=== PATIENT | female | born 1980 | race African-American/Black ===

== ENCOUNTER → 2016-08-03 | Outpatient (CLI) | payer BC ==
[~2016-08-03] MED LIST: MTR600X PO; OXYC-57 PO; PRENTAB26 PO
--- NOTE | 2016-08-03 13:35 | MAMMOGRAPHY REPORT ---
BILATERAL DIGITAL DIAGNOSTIC MAMMOGRAM TOMOSYNTHESIS WITH CAD AND TARGETED RIGHT ULTRASOUND: 08/03/19 17 CLINICAL HISTORY: 36-year-old woman with anterior right breast pain. She is still occasionally nurs ing a young child and noticed pain after returning to after a brief period of cessation. No palpable lumps or bloody nipple discharge. No family history of breast cancer. TECHNIQUE: Bilateral breast tomosynthesis in addition to standard 2D mammography was performed. Curr ent study was also evaluated with a Computer Aided Detection (CAD) system. COMPARISON: No prior exams were available for comparison. BREAST COMPOSITION: There are scattered areas of fibroglandular density in both breasts. FINDINGS: No suspicious mass, architectural distortion or cluster of microcalcifications is seen. Real-time high-resolution ultrasound was performed in the area of pain pointed out by the patient in cluding the retroareolar right breast, 2:00, 3:00, 4:00, 5:00, 6:00 and 7:00 anterior axes. Normal fibroglandular tissue is seen without a discrete solid or cystic mass. There is no evidence of an i ntraductal mass or other suspicious abnormality. IMPRESSION: ACR BI-RADS CATEGORY 2: BENIGN, TARGETED ULTRASOUND ACR BI-RADS CATEGORY 2: BENIGN There is no mammographic or targeted sonographic evidence of malignancy. No suspicious mammographic or sonographic abnormality to explain in the anterior right breast pain. Therefore, clinical follo w-up is recommended. Would also recommend annual screening mammography beginning at age 40. The pa tient has been verbally notified of the results. Approximately 10% of breast cancers are not detected with mammography. A negative mammographic repor t should not delay biopsy if a clinically suggestive mass is present. Justyna Jon M.D. ay/:08/03/2016 10:46:18 Front Counter Attendant: Agueda GRISSOM(Kelly)(Henrique), [facility] letter sent: Normal 1/2 BI-RADS Code: ACR BI-RADS Category 2: Benign Ultrasound BI-RADS: ACR BI-RADS Category 2: Benign
== END | disposition home or self-care (01) ==
LOC: C.MAMM 08:20
PROVIDERS: ATTEND Family Medicine
DX: N64.4 Mastodynia (principal)

== ENCOUNTER 2018-07-17 22:46 | Observation (INO) ==
[2018-07-17] MEDS ORDERED: KETOROLAC 30 MG/ML VIAL IV STA (23:11)
[2018-07-17] MEDS ORDERED: ONDANSETRON INJ 2 MG/ML 2 ML VIAL IV STA (23:11)
[2018-07-17] MEDS ORDERED: MoRPHine SULFATE 4 MG/ML 1 ML CARP\\VIAL IV STA (23:11)
[2018-07-17 23:33] LABS: Basophils # (auto) 0.04 K/uL (0-0.2); Basophils % (auto) 0.5 %; Eosinophils % (auto) 1.3 %; Hematocrit (blood only) 41.8 % (37-47); Immature Granulocytes # (auto) 0.02 K/uL (0.00-0.02); Immature Granulocytes % (auto) 0.3 %; Lymphocytes # (auto) 2.76 K/uL (1.2-3.4); Lymphocytes % (auto) 34.7 %; Mean Corpuscular Hgb Conc 33.5 g/dL (32-36); Mean Corpuscular Volume 86.9 fL (80-100); Mean Platelet Volume 11.3 fL (7.4-10.4); Monocytes # (auto) 0.65 K/uL (0.11-0.59); Monocytes % (auto) 8.2 %; Neutrophils # (auto) 4.39 K/uL (1.4-6.5); Platelet Count 195 K/uL (130-400); RDW Coefficient of Variation 13.5 % (11.5-14.5); RDW Standard Deviation 42.9 fL (36.4-46.3); Red Blood Count 4.81 M/uL (4.2-5.4); White Blood Count 7.96 K/uL (4.8-10.8)
[2018-07-17 23:40] LABS: Albumin Level 3.3 gm/dl (3.4-5.0); BUN Creatinine Ratio 11.7 (10-20); Creatinine Clr Calc Pharmacy 89.5 ml/min; Est GFR (African American) 74.9; Est GFR (Non-African American) 64.6; Potassium 3.7 mmol/L (3.5-5.1)
[2018-07-17 23:43] LABS: Albumin Globulin Ratio 0.8 (0.9-2); Bilirubin,Total 0.3 mg/dl (0.2-1); Total Protein 7.3 gm/dl (6.4-8.2)
[2018-07-18] LABS: Appearance Urine Clear (Clear); Bacteria Urine Automated Negative (Negative); Bilirubin Urine Negative (Negative); Color Urine Yellow; Epithelial Cell Urine Auto 20-30 /lpf (0-5); Glucose Urine UA Negative (Negative); Ketones Urine Negative (Negative); Leukocyte Esterase Urine Trace (Negative); Nitrite Urine Negative (Negative); Protein Urine Negative (Negative); Urobilinogen Urine Negative (Negative)
[2018-07-18] MEDS ORDERED: IOVERSOL 100ml IV PRN (00:07)
--- NOTE | 2018-07-18 00:33 | Emergency Department Note ---
History of Present Illness General Chief complaint: Back Injury/Pain Stated complaint: BACK PAIN Time Seen by Provider: 07/17/18 23:04 History of Present Illness Maximum Pain Intensity: 10 This is a 38-year-old female that presents to the emergency department via ambulance with complaints of "back pain". The patient states that she has no history of low back pain. She notes that around 1700 hrs. today she began with back pain in the left low back that radiated down the leg. There is been no trauma or injury. She notes that she cannot walk, turn or bend secondary to this amount of pain. She numerically rates the pain in this region as a 10/10. She also notes some left lower quadrant abdominal pain with the left low back and left lateral leg pain. She does note leg weakness. She denies any bowel or bladder incontinence, numbness or tingling in the genital region, history of back problems, medical problems, fevers, chills, chest pain, shortness of breath or dysuria. Home Medications Home Medications Medication Instructions Recorded Confirmed Type No Known Home Medications 07/17/18 07/17/18 History Allergies Allergy/AdvReac Type Severity Reaction Status Date / Time No Known Allergies Allergy Unverified 07/17/18 23:42 Past Med/Surg History Medical History Brain aneurysm (Resolved) Surgical History Hx of section Social History Feels Safe at Home: Yes Smoking Status: Never smoker Review of Systems A total of 10 systems reviewed and were otherwise negative Physical Exam Vital Signs Vital Signs - 24 hr 07/17/18 22:52 07/18/18 00:09 07/18/18 01:56 Temperature 36.5 C Temperature Source Oral Sepsis Action Taken by Nursing No Action Required Pulse Rate 63 Pulse Rate [Right Finger] 65 60 Pulse Rhythm [Right Finger] Regular Pulse Strength [Right Finger] Normal Respiratory Rate 20 16 18 Respiratory Effort / Characteristics Non-Labored Non-Labored Spontaneous Respiratory Depth Normal Normal Respiratory Pattern Regular Blood Pressure 120/89 Blood Pressure [Right Arm] 127/81 121/70 Blood Pressure Mean 99 Blood Pressure Mean [Right Arm] 96 87 Blood Pressure Position [Right Arm] Lying Pulse Oximetry 100 98 99 Oxygen Delivery Method Room Air 07/18/18 05:00 Temperature Temperature Source Sepsis Action Taken by Nursing Pulse Rate Pulse Rate [Right Finger] 76 Pulse Rhythm [Right Finger] Regular Pulse Strength [Right Finger] Respiratory Rate 18 Respiratory Effort / Characteristics Non-Labored Respiratory Depth Normal Respiratory Pattern Blood Pressure Blood Pressure [Right Arm] 129/79 Blood Pressure Mean Blood Pressure Mean [Right Arm] 95 Blood Pressure Position [Right Arm] Pulse Oximetry 98 Oxygen Delivery Method Room Air VITAL SIGNS - Vital signs and nursing notes were reviewed. Stable. Afebrile. GENERAL -38-year-old female appearing her stated age who is in no acute distress. Communicates well with provider and answers questions appropriately. SKIN - Without rashes. No meningeal or petechial rash. HEAD - NC/AT. EYES - PERRL with EOMI bilaterally. Sclera anicteric. EARS - No deformities of external structures noted on gross examination bilaterally. NOSE - Midline and without cyanosis. No epistaxis or purulent drainage noted. MOUTH/OROPHARYNX - Without perioral cyanosis. NECK - Neck with FROM. Supple to palpation. No nuchal rigidity. LUNGS - Chest wall symmetric without accessory muscle use, intercostals retractions, or central cyanosis. Normal vesicular breath sounds CTA B/L. No wheezes, rales, or rhonchi appreciated. CARDIAC - RRR with S1/S2. No murmur, rubs, or gallops appreciated. ABDOMEN - Abdominal contour normal without pulsations or visible masses. BS normoactive all four quadrants. No palpable masses, hepatosplenomegaly, or ascites noted. Left lower quadrant abdominal tenderness noted. EXTREMITIES - No clubbing or peripheral cyanosis. No pretibial edema present. Patient does have difficulty flexing with the left hip secondary to pain elicited in the low back. +5/5 strength noted in UE/LE bilaterally. NEUROLOGIC - Cranial nerves II through XII grossly intact. Sensory intact to light touch throughout. I am unable to have the patient properly positioned for assessing his reflexes secondary to her level of pain. MUSCULOSKELETAL: There is tenderness to palpation overlying the left-sided paraspinous musculature of the lumbar spine. Significant decreased range of motion of the patient's lumbar spine secondary to pain. PSYCH - A&O, and cooperates fully with examiner. Pt is very pleasant and interacts well with examiner. Course Administered Medications Ioversol (Optiray 320 100ml) 100 ml IV ONCE PRN PRN Reason: Interaction Checking Stop: 07/22/18 00:06 Last Admin: 07/18/18 00:08 Dose: 92 ml Discontinued Medications Dexamethasone Sodium Phosphate (Decadron Pf) 10 mg IV NOW ONE Stop: 07/18/18 02:57 Last Admin: 07/18/18 03:12 Dose: 10 mg Diazepam (Valium) 5 mg IV NOW STA Stop: 07/18/18 00:38 Last Admin: 07/18/18 00:47 Dose: 5 mg Hydromorphone HCl (Dilaudid) 1 mg IV NOW STA Stop: 07/18/18 02:57 Last Admin: 07/18/18 03:12 Dose: 1 mg Ketorolac Tromethamine (Toradol) 30 mg IV NOW STA Stop: 07/17/18 23:12 Last Admin: 07/17/18 23:21 Dose: 30 mg Lidocaine (Lidoderm 5%) 1 patch TD NOW STA Stop: 07/18/18 02:58 Last Admin: 07/18/18 03:12 Dose: 1 patch Morphine Sulfate (Morphine Sulfate) 4 mg IV NOW STA Stop: 07/17/18 23:12 Last Admin: 07/17/18 23:21 Dose: 4 mg Ondansetron HCl (Zofran) 4 mg IV NOW STA Stop: 07/17/18 23:12 Last Admin: 07/17/18 23:21 Dose: 4 mg Medical Decision Making Laboratory Data Result diagrams: 07/17/18 23:00 07/17/18 23:00 Lab Results 07/17/18 07/17/18 07/17/18 Range/Units 23:00 23:00 23:50 WBC 7.96 (4.8-10.8) K/uL RBC 4.81 (4.2-5.4) M/uL Hgb 14.0 (12.0-16.0) g/dL Hct 41.8 (37-47) % MCV 86.9 (80-100) fL MCH 29.1 (25-34) pg MCHC 33.5 (32-36) g/dL RDW Std Deviation 42.9 (36.4-46.3) fL RDW Coeff of Maurilio 13.5 (11.5-14.5) % Plt Count 195 (130-400) K/uL MPV 11.3 H (7.4-10.4) fL Immature Gran % (Auto) 0.3 % Neut % (Auto) 55.0 % Lymph % (Auto) 34.7 % Reeves % (Auto) 8.2 % Eos % (Auto) 1.3 % Baso % (Auto) 0.5 % Immature Gran # (Auto) 0.02 (0.00-0.02) K/uL Neut # (Auto) 4.39 (1.4-6.5) K/uL Lymph # (Auto) 2.76 (1.2-3.4) K/uL Reeves # (Auto) 0.65 H (0.11-0.59) K/uL Eos # (Auto) 0.10 (0-0.5) K/uL Baso # (Auto) 0.04 (0-0.2) K/uL Sodium 138 (136-145) mmol/L Potassium 3.7 (3.5-5.1) mmol/L Chloride 104 (98-107) mmol/L Carbon Dioxide 29 (21-32) mmol/L Anion Gap 5.0 (3-11) BUN 13 (7-18) mg/dl Creatinine 1.08 (0.6-1.2) mg/dl Est Cr Clr Drug Dosing 89.5 ml/min Est GFR ( Amer) 74.9 Est GFR (Non-Af Amer) 64.6 BUN/Creatinine Ratio 11.7 (10-20) Glucose 94 (70-99) mg/dl Calcium 9.0 (8.5-10.1) mg/dl Total Bilirubin 0.3 (0.2-1) mg/dl AST 21 (15-37) U/L ALT 29 (12-78) U/L Alkaline Phosphatase 50 (45-117) U/L Total Protein 7.3 (6.4-8.2) gm/dl Albumin 3.3 L (3.4-5.0) gm/dl Globulin 4.0 (2.5-4.0) gm/dl Albumin/Globulin Ratio 0.8 L (0.9-2) Urine Color Yellow Urine Appearance Clear (Clear) Urine pH 7.0 (4.5-7.5) Ur Specific [place] 1.010 (1.000-1.030) Urine Protein Negative (Negative) Urine Glucose (UA) Negative (Negative) Urine Ketones Negative (Negative) Urine Blood Negative (Negative) Urine Nitrite Negative (Negative) Urine Bilirubin Negative (Negative) Urine Urobilinogen Negative (Negative) Ur Leukocyte Esterase Trace H (Negative) Urine WBC (Auto) 1-5 (0-5) /hpf Urine RBC (Auto) 0-4 (0-4) /hpf U Hyaline Cast (Auto) 1-5 (0-5) /lpf U Epithel Cells (Auto) 20-30 H (0-5) /lpf Urine Bacteria (Auto) Negative (Negative) POC Ur Test (NEG) 07/17/18 Range/Units 23:50 WBC (4.8-10.8) K/uL RBC (4.2-5.4) M/uL Hgb (12.0-16.0) g/dL Hct (37-47) % MCV (80-100) fL MCH (25-34) pg MCHC (32-36) g/dL RDW Std Deviation (36.4-46.3) fL RDW Coeff of Maurilio (11.5-14.5) % Plt Count (130-400) K/uL MPV (7.4-10.4) fL Immature Gran % (Auto) % Neut % (Auto) % Lymph % (Auto) % Reeves % (Auto) % Eos % (Auto) % Baso % (Auto) % Immature Gran # (Auto) (0.00-0.02) K/uL Neut # (Auto) (1.4-6.5) K/uL Lymph # (Auto) (1.2-3.4) K/uL Reeves # (Auto) (0.11-0.59) K/uL Eos # (Auto) (0-0.5) K/uL Baso # (Auto) (0-0.2) K/uL Sodium (136-145) mmol/L Potassium (3.5-5.1) mmol/L Chloride (98-107) mmol/L Carbon Dioxide (21-32) mmol/L Anion Gap (3-11) BUN (7-18) mg/dl Creatinine (0.6-1.2) mg/dl Est Cr Clr Drug Dosing ml/min Est GFR ( Amer) Est GFR (Non-Af Amer) BUN/Creatinine Ratio (10-20) Glucose (70-99) mg/dl Calcium (8.5-10.1) mg/dl Total Bilirubin (0.2-1) mg/dl AST (15-37) U/L ALT (12-78) U/L Alkaline Phosphatase (45-117) U/L Total Protein (6.4-8.2) gm/dl Albumin (3.4-5.0) gm/dl Globulin (2.5-4.0) gm/dl Albumin/Globulin Ratio (0.9-2) Urine Color Urine Appearance (Clear) Urine pH (4.5-7.5) Ur Specific [place] (1.000-1.030) Urine Protein (Negative) Urine Glucose (UA) (Negative) Urine Ketones (Negative) Urine Blood (Negative) Urine Nitrite (Negative) Urine Bilirubin (Negative) Urine Urobilinogen (Negative) Ur Leukocyte Esterase (Negative) Urine WBC (Auto) (0-5) /hpf Urine RBC (Auto) (0-4) /hpf U Hyaline Cast (Auto) (0-5) /lpf U Epithel Cells (Auto) (0-5) /lpf Urine Bacteria (Auto) (Negative) POC Ur Test NEG (NEG) Imaging Data Radiologist's Impression: CT ABDOMEN & PELVIS With Contrast: No evidence of acute inflammatory or obstructive process in the abdomen or pelvis to account for symptoms. Specifically, no hydronephrosis, ureteral calculus or perinephric inflammatory changes. No bowel obstruction, significant bowel wall thickening, free fluid or free air. No evidence of acute appendicitis. Incidental dominant follicle in the left ovary measuring 1.9 cm. Radiologist: Vanessa Go MD Study ready at 00:08 and initial results transmitted at 00:29 MRI L SPINE : Vertebral bodies and bone marrow signal are preserved. Conus medullaris terminates at L1-L2 and distal cord is unremarkable. Cauda equina roots are unremarkable. Facet arthropathy/ligamentous hypertrophy and small posterior disc bulges cause mild bilateral foraminal narrowing L3-L4, L4-L5, and L5-S1. No significant canal stenosis. Radiologist: Beltran Mcneal MD Study ready at 01:59 and initial results transmitted at 02:32 MDM Narrative Patient was seen and evaluated as above in room B7. Review was performed of nursing notes and vital signs. After obtaining a thorough history and physical examination the above work up was performed. She presents to us today with low back pain. She came to us via ambulance. She is nontoxic on exam but does appear to be in a great deal of pain when she tries to move. I tried to have the patient sit at the edge of the bed to assess reflexes and she could not even rise to a sitting position out of bed secondary to her level of pain. She was medicated with IV morphine, Toradol and was given Zofran for any potential nausea. She was reevaluated with minimal improvement. CT scan of the abdomen and pelvis were performed given the patient's presentation. Results as above. This is essentially negative. Decision was then made to obtain an MRI as I still was unable to assess reflexes secondary to her level of pain as she was unable to essentially sit at the side of the bed. This was obtained with results as above. There are some bulging disks. This certainly could be the cause of her pain. I then ordered her additional meds to include Valium, dexamethasone, Dilaudid, and lidocaine patch. Benefit versus risk of inpatient management was discussed with the patient. I did thoroughly discuss options of inpatient versus outpatient management. She expressed concern over going home as when she goes to move the pain is still extreme. I discussed this with the attending physician and subsequent Ranjith the hospitalist. Please refer to further documentation regarding her stay for intractable back pain. Case was discussed with the attending physician. In the evaluation and treatment of this patient the following differential diagnosis entertained: Fracture, dislocation, subluxation, cauda equina syndrome , AAA, diverticulitis, appendicitis, torsion, osteomyelitis, piriformis syndrome , strain, sprain, among others. Impression & Plan Intractable low back pain Discharge Plan Visit Data Chief Complaint: Back Injury/Pain Stated Complaint: BACK PAIN ED Provider: Beltran Dalal ED Midlevel Provider: Julian Arroyo Discharge Problem: Intractable low back pain Prescriptions Prescriptions: No Action No Known Home Medications RF: 0
[2018-07-18] MEDS ORDERED: DIAZEPAM 5 MG/ML INJ 10ML VIAL IV STA (00:37)
[2018-07-18] MEDS ORDERED: DEXAMETHASONE **PF** INJ 10 MG/ML VIAL IV ONE (02:56)
[2018-07-18] MEDS ORDERED: HYDROmorphone INJ 1 MG/ML SYRINGE IV STA (02:56)
[2018-07-18] MEDS ORDERED: LIDOCAINE 5% 1 PATCH TD STA (02:57)
--- NOTE | 2018-07-18 05:12 | History & Physical Report ---
Date of Service July 18, 2018 Assessment & Plan (1) Intractable low back pain: Intractable low back pain/lumbosacral facet syndrome/left S1 radiculopathy -- Continue Decadron at 6 mg IV every 6 hours. Acetaminophen 1000 mg IV every 8 hours as needed mild pain or temperature. Tramadol 50 mg p.o. every 4 hours as needed moderate pain. Morphine sulfate 2 mg IV every 2 hours as needed severe pain. Baclofen 10 mg p.o. 3 times daily. Consult orthopedic surgery Dr. Umaña. Present on Admission?: Yes (2) Lumbosacral facet joint syndrome: See above Present on Admission?: Yes (3) Left sacral radiculopathy: See above Present on Admission?: Yes History of Present Illness Chief Complaint: The patient presents to the emergency department with complaint of the acute onset of severe low back pain and pain radiating around her left groin. Primary Care Provider: Leighton Chen The patient is a 38-year-old female, who is regularly physically active, including doing low impact exercising, who developed acute onset of severe low back pain and pain radiating into her left groin that she had never had before. She presented to the emergency department for assessment, had the persistence of her pain in spite of receiving Decadron,, Toradol, Dilaudid, morphine and diazepam without significant improvement. She was then referred for evaluation for admission. Allergies Allergy/AdvReac Type Severity Reaction Status Date / Time No Known Allergies Allergy Unverified 07/17/18 23:42 Home Medications Home Medications Medication Instructions Recorded Confirmed Type No Known Home Medications 07/17/18 07/17/18 History Past Med/Surg History Social History Feels Safe at Home: Yes Smoking Status: Never smoker Review of Systems The patient denies chest pain, palpitations, shortness of breath, dyspnea on exertion, cough, lower extremity swelling, sore throat, fevers, chills, sweats, weight change, fatigue, nausea, vomiting, diarrhea , constipation, abdominal pain, pelvic pain, blood in urine or stool, dysuria, urinary frequency or urgency, lightheadedness , dizziness, headache, memory loss, loss of consciousness, rash, abnormal bruising or bleeding, imbalance, generalized weakness, numbness or tingling in arms or legs, generalized arthralgias or myalgias, neck pain, or night sweats. The review of systems is otherwise negative other than for that already noted above, and at least 10 systems have been reviewed. Physical Exam 2 Vital Signs (Past 24 Hours): Last Vital Signs Temp 36.5 C 07/17/18 22:52 Pulse 60 07/18/18 01:56 Resp 18 07/18/18 01:56 BP 121/70 07/18/18 01:56 Pulse Ox 99 07/18/18 01:56 Physical Exam: The patient is awake, alert and oriented 3, well developed and well nourished, normocephalic and atraumatic, lying in bed on her right side , and in no acute distress. HEENT--PERRL, EOMI, mucous membranes and oropharynx normal. Neck--supple. No JVD. No bruits. Thyroid normal, trachea midline, no adenopathy. Heart--normal S1 and S2. No murmurs, rubs or gallops. Lungs--clear bilaterally, no respiratory distress, no accessory muscle use. Abdomen--normal bowel sounds and soft. Nontender. Nondistended, no hernias or masses, no organomegaly. Extremities--no cyanosis or clubbing. No edema. There are good distal pulses b/ l. Dermatologic--normal skin turgor, normal color, no abnormal lymph nodes, no rash. Neurologic--cranial nerves II through XII grossly intact. Rheumatologic--normal range of motion. Psychiatric--normal affect. Results & Data Laboratory Results Laboratory Results WBC 7.96 K/uL (4.8-10.8) 07/17/18 23:00 RBC 4.81 M/uL (4.2-5.4) 07/17/18 23:00 Hgb 14.0 g/dL (12.0-16.0) 07/17/18 23:00 Hct 41.8 % (37-47) 07/17/18 23:00 MCV 86.9 fL (80-100) 07/17/18 23:00 MCH 29.1 pg (25-34) 07/17/18 23:00 MCHC 33.5 g/dL (32-36) 07/17/18 23:00 RDW Std Deviation 42.9 fL (36.4-46.3) 07/17/18 23:00 RDW Coeff of Maurilio 13.5 % (11.5-14.5) 07/17/18 23:00 Plt Count 195 K/uL (130-400) 07/17/18 23:00 MPV 11.3 fL (7.4-10.4) H 07/17/18 23:00 Immature Gran % (Auto) 0.3 % 07/17/18 23:00 Neut % (Auto) 55.0 % 07/17/18 23:00 Lymph % (Auto) 34.7 % 07/17/18 23:00 [place] % (Auto) 8.2 % 07/17/18 23:00 Eos % (Auto) 1.3 % 07/17/18 23:00 Baso % (Auto) 0.5 % 07/17/18 23:00 Immature Gran # (Auto) 0.02 K/uL (0.00-0.02) 07/17/18 23:00 Neut # (Auto) 4.39 K/uL (1.4-6.5) 07/17/18 23:00 Lymph # (Auto) 2.76 K/uL (1.2-3.4) 07/17/18 23:00 [place] # (Auto) 0.65 K/uL (0.11-0.59) H 07/17/18 23:00 Eos # (Auto) 0.10 K/uL (0-0.5) 07/17/18 23:00 Baso # (Auto) 0.04 K/uL (0-0.2) 07/17/18 23:00 Sodium 138 mmol/L (136-145) 07/17/18 23:00 Potassium 3.7 mmol/L (3.5-5.1) 07/17/18 23:00 Chloride 104 mmol/L (98-107) 07/17/18 23:00 Carbon Dioxide 29 mmol/L (21-32) 07/17/18 23:00 Anion Gap 5.0 (3-11) 07/17/18 23:00 BUN 13 mg/dl (7-18) 07/17/18 23:00 Creatinine 1.08 mg/dl (0.6-1.2) 07/17/18 23:00 Est Cr Clr Drug Dosing 89.5 ml/min 07/17/18 23:00 Est GFR ( Amer) 74.9 02/05/19 23:00 Est GFR (Non-Af Amer) 64.6 07/17/18 23:00 BUN/Creatinine Ratio 11.7 (10-20) 07/17/18 23:00 Glucose 94 mg/dl (70-99) 07/17/18 23:00 Calcium 9.0 mg/dl (8.5-10.1) 07/17/18 23:00 Total Bilirubin 0.3 mg/dl (0.2-1) 07/17/18 23:00 AST 21 U/L (15-37) 07/17/18 23:00 ALT 29 U/L (12-78) 07/17/18 23:00 Alkaline Phosphatase 50 U/L (45-117) 07/17/18 23:00 Total Protein 7.3 gm/dl (6.4-8.2) 07/17/18 23:00 Albumin 3.3 gm/dl (3.4-5.0) L 07/17/18 23:00 Globulin 4.0 gm/dl (2.5-4.0) 07/17/18 23:00 Albumin/Globulin Ratio 0.8 (0.9-2) L 07/17/18 23:00 Urine Color Yellow 07/17/18 23:50 Urine Appearance Clear (Clear) 07/17/18 23:50 Urine pH 7.0 (4.5-7.5) 07/17/18 23:50 Ur Specific [place] 1.010 (1.000-1.030) 07/17/18 23:50 Urine Protein Negative (Negative) 07/17/18 23:50 Urine Glucose (UA) Negative (Negative) 07/17/18 23:50 Urine Ketones Negative (Negative) 07/17/18 23:50 Urine Blood Negative (Negative) 07/17/18 23:50 Urine Nitrite Negative (Negative) 07/17/18 23:50 Urine Bilirubin Negative (Negative) 07/17/18 23:50 Urine Urobilinogen Negative (Negative) 07/17/18 23:50 Ur Leukocyte Esterase Trace (Negative) H 07/17/18 23:50 Urine WBC (Auto) 1-5 /hpf (0-5) 07/17/18 23:50 Urine RBC (Auto) 0-4 /hpf (0-4) 07/17/18 23:50 U Hyaline Cast (Auto) 1-5 /lpf (0-5) 07/17/18 23:50 U Epithel Cells (Auto) 20-30 /lpf (0-5) H 07/17/18 23:50 Urine Bacteria (Auto) Negative (Negative) 07/17/18 23:50 POC Ur Test NEG (NEG) 07/17/18 23:50 Code Status & VTE Plan Code Status Full code VTE Prophylaxis Plan VTE Prophylaxis will be ordered: Yes
[2018-07-18] MEDS ORDERED: DEXAMETHASONE SOD INJ 4 MG/ML VIAL IV SCH (05:49)
[2018-07-18] MEDS ORDERED: ACETAMINOPHEN 325 MG TAB PO PRN (05:49)
[2018-07-18] MEDS ORDERED: TRAMADOL HCL 50 MG TABLET PO PRN (05:49)
[2018-07-18] MEDS ORDERED: ACETAMINOPHEN 1000 MG/100 ML IV IV PRN (05:49)
[2018-07-18] MEDS ORDERED: MAGNESIUM HYDROXIDE SUSP 30 ML UDC PO PRN (05:49)
[2018-07-18] MEDS ORDERED: MoRPHine SULFATE 4 MG/ML 1 ML CARP\\VIAL IV PRN (05:49)
[2018-07-18] MEDS ORDERED: POLYETHYLENE (MIRALAX) 17 GM PACK PO PRN (05:49)
[2018-07-18] MEDS ORDERED: ALUMINUM/MAGNESIUM SUSP 30 ML UDC PO PRN (05:49)
[2018-07-18 06:57] LABS: INR 1.1 (0.9-1.1)
--- NOTE | 2018-07-18 07:38 | CT Scan Report ---
CT SCAN OF THE ABDOMEN AND PELVIS WITH IV CONTRAST CLINICAL HISTORY: Left lower quadrant abdominal pain. COMPARISON STUDY: No priors. TECHNIQUE: Following the IV administration of 92 cc of Optiray 320, CT scan of the abdomen and pelvi s is performed from the lung bases to the proximal femora. Images are reviewed in the axial, sagittal , and coronal planes. IV contrast was administered without complication. A dose lowering technique wa s utilized adhering to the principles of ALARA. CT DOSE: 655.96 mGy.cm FINDINGS: Lung bases: The heart is normal in size and without pericardial effusion. The lung bases are clear no ting dependent atelectasis. Liver: The contrast-enhanced liver is normal in size, contour, and attenuation. There is no intrahepa tic biliary ductal dilatation. The hepatic veins and portal veins are patent. Gallbladder: Unremarkable. Spleen: Normal in size and attenuation. Pancreas: Unremarkable. Adrenal glands: Unremarkable. Kidneys: The contrast enhanced kidneys are normal in size and without hydronephrosis. The kidneys enh ance symmetrically. Abdominal vasculature: The abdominal aorta is normal in course and caliber. Bowel: There is moderate colonic fecal retention. No bowel obstruction is seen. The appendix is well -visualized and normal. Peritoneum: There is no intraperitoneal free air or abdominal ascites. There is a fat-containing umbi lical hernia. Lymphadenopathy: None. Pelvic viscera: The bladder, uterus, and adnexa are normal as visualized. There are bilateral ovarian follicles. A dominant follicle on the left measures up to 2.5 cm. Skeletal structures: No lytic or blastic lesions are seen. IMPRESSION: 1. There are no acute infectious or inflammatory findings in the abdomen or pelvis. 2. Moderate constipation. Electronically signed by: Nader Silva M.D. 07/18/2018 7:37 AM
--- NOTE | 2018-07-18 07:46 | Magnetic Resonance Report ---
MR lumbar spine wo con CLINICAL HISTORY: 38 years-old Female with Left low back pain. LLQ abd pain. Acute low back pain wit hout reported trauma COMPARISON: CT abdomen and pelvis 07/17/2018 TECHNIQUE: Multiplanar, multi sequence MRI of the lumbar spine was performed without intravenous cont rast. FINDINGS: The large [id number] pants busheler localizer images demonstrate no gross abnormality within the imaged abd omen, pelvis or paraspinal tissues. Follicular changes are noted about the left ovary. The imaged zeferino goldie appears prominent in size. 5 mm T1 and T2 hyperintense lesion about the L3 vertebral body suggest s hemangioma or focal fatty marrow. Mildly decreased T1 marrow signal throughout the imaged bony stru ctures. No acute fracture, subluxation or focal bone marrow edema. Conus medullaris terminates at the L1-L2 level. Signal within the and imaged thoracic spinal cord and cauda equina appears unremarkable . T12-L1: No central canal or neural foraminal stenosis. L1-L2: No central canal or neural foraminal stenosis. Mild ligamentum flavum thickening. L2-L3: No central canal or neural foraminal stenosis. Mild ligamentum flavum thickening. L3-L4: Small posterior annular disc bulge with left foraminal/extraforaminal annular fissure is note d in conjunction with mild facet arthrosis and ligamentum flavum thickening. There is mild inferior b ilateral foraminal narrowing. The central canal is generally patent. L4-L5: Small circumferential annular disc bulge with ligamentum flavum thickening and mild facet art hrosis. Flattening of the ventral thecal sac without significant central canal stenosis. Mild bilater al foraminal narrowing. L5-S1: Small posterior annular disc bulge with mild ligamentum flavum thickening and facet arthrosis . Mild bilateral foraminal narrowing. Central canal appears patent. IMPRESSION: 1. Small posterior annular disc bulge with left foraminal/extraforaminal annular fissure is noted kenia ng with mild facet arthrosis and ligamentum flavum thickening resulting in mild bilateral foraminal s tenosis. 2. Small annular disc bulges at L4-L5 and L5-S1 results in mild foraminal stenosis bilaterally. 3. No significant central canal stenosis. 4. Mildly decreased T1 marrow signal throughout may be seen in cases of anemia, smoking or obesity am serene other etiologies. The above report was generated using voice recognition software. It may contain grammatical, syntax o r spelling errors. Electronically signed by: Acosta Osborn M.D. 07/18/2018 7:45 AM
[2018-07-18] MEDS: BACLOFEN 10 MG TAB PO SCH ×2 (08:26→15:00)
[2018-07-18] MEDS: DEXAMETHASONE SOD PHOSPHATE 6 MG in SYRINGE 0 ML IV SCH ×2 (08:27→15:00)
[2018-07-18] MEDS ORDERED: HEPARIN SOD 5,000 UNIT/0.5 ML VIAL SQ SCH (09:00)
[2018-07-18] MEDS ORDERED: HYDROCODONE/ACETAMOPHEN 5/325MG TAB PO PRN (10:59)
--- NOTE | 2018-07-18 16:45 | Discharge Summary ---
Date of Service July 18, 2018 Admission HPI Per Admitting Provider The patient is a 38-year-old female, who is regularly physically active, including doing low impact exercising, who developed acute onset of severe low back pain and pain radiating into her left groin that she had never had before. She presented to the emergency department for assessment, had the persistence of her pain in spite of receiving Decadron,, Toradol, Dilaudid, morphine and diazepam without significant improvement. She was then referred for evaluation for admission. Principal Diagnosis Left lower back pain Discharge Exam Constitutional WD/WN, vitals as above Eyes PERRL, conjunctivae normal, anicteric sclerae ENMT external ear and nose normal, oropharynx normal Neck trachea midline, no thyromegaly Respiratory normal respiratory effort, lungs clear to auscultation Cardiovascular RRR, no murmur, no edema Gastrointestinal (Abdomen) normal bowel sounds, soft, nontender, no hepatosplenomegaly Musculoskeletal Extremities: extremities normal to inspection; no cyanosis and no clubbing Skin no rashes, warm and dry Neurologic deep tendon reflexes 2+ bilaterally (And patellar and Achilles bilaterally), moves all extremities (5 out of 5 strength throughout lower extremities bilaterally, sensation intact to light touch bilaterally) and awake; no focal motor deficits Psychiatric A+Ox3, euthymic affect Discharge Data Allergies Allergy/AdvReac Type Severity Reaction Status Date / Time No Known Allergies Allergy Unverified 07/17/18 23:42 Consultations None Ordered Studies 07/17/18 23:45 CT abd pelvis IV con only Urgent 07/18/18 00:37 MR lumbar spine wo con Stat Hospital Course (1) Intractable low back pain: Intractable low back pain/lumbosacral facet syndrome/left S1 radiculopathy -- MRI of the lumbar spine showed: IMPRESSION: 1. Small posterior annular disc bulge with left foraminal/extraforaminal annular fissure is noted along with mild facet arthrosis and ligamentum flavum thickening resulting in mild bilateral foraminal stenosis. 2. Small annular disc bulges at L4-L5 and L5-S1 results in mild foraminal stenosis bilaterally. 3. No significant central canal stenosis. 4. Mildly decreased T1 marrow signal throughout may be seen in cases of anemia, smoking or obesity among other etiologies. She had no focal neuro deficits on exam and her MRI did not show anything that would need urgent surgical intervention Orthopedic spine surgery consult was canceled as was not necessary She was doing much better at the time of discharge, she was able to ambulate and her pain was controlled. Received Decadron at 6 mg IV every 6 hours which significantly helped her pain She was also given acetaminophen 1000 mg IV every 8 hours as needed The tramadol gave her side effects that she did not like She was started on baclofen 10 mg p.o. 3 times daily as a muscle relaxant -She was also started on [place] and had improvement with a lidocaine patch as well -She will go home with a Medrol Dosepak, hydrocodone, and she will buy over-the- counter lidocaine patches -She will follow-up with her primary care physician (2) Lumbosacral facet joint syndrome: See above (3) Left sacral radiculopathy: See above She was stable for discharge to home Total Time Total Time Spent Total Time Spent (In Minutes): Greater than 30 minutes Total Time Includes: Examination of the Patient, Discharge Planning and Medication Reconciliation Discharge Plan Discharge Items Patient Disposition: Home - Self-Care Reason For Visit: INTRACTABLE LOW BACK PAIN Discharge Diagnosis: Lower back pain, sciatica Condition: Fair Discharge Goals: Decrease discomfort, Diagnostic testing, Improve disease control, Learn about illness and Therapeutic intervention Activity: As commented below Lifting: None Bathing: No limitations Sexual Activity: When tolerated Exercise/Sports: Gradually increase as tolerated Exercise Comment: Please call for appointment with outpatient physical therapy Driving/Machine Use: No limitations Driving/Machine Use Comment: But do not drive while taking hydrocodone Non-emergency contact: Primary Care Provider Call non-emergency contact if: you have any medication questions, your symptoms worsen, your pain is not controlled, your pain is worsening, your pain is unusual for you and your pain is concerning for you Follow-up/Referrals: Leighton Chen [Primary Care Provider] - (Please call for appointment within 1-2 weeks) Diet: Regular Addtl Provider Instructions: You were admitted with lower back pain which is thought to be due to sciatica. This condition is treated with pain medications, anti-inflammatory medications, and muscle relaxers. You should also attend physical therapy. Please follow-up with your primary care physician within 1-2 weeks. Prescriptions: New baclofen 10 mg Tablet 10 mg PO TID PRN (Reason: muscle spasm) Qty: 30 RF: 0 hydrocodone-acetaminophen [[place]] 5-325 mg Tablet 1 tab PO Q4 PRN (Reason: Severe pain) Qty: 12 RF: 0 methylprednisolone [Medrol (Jarod)] 4 mg tablets,dose pack 4 mg PO UD Qty: 21 RF: 0 No Action No Known Home Medications RF: 0 Stand-Alone Forms: [facility] Discharge Orders: Discharge Order (Routine); Ordered 07/18/18 Ordered By: Rosario Tenorio Admission Data Admit Date/Time: 07/18/18 04:54 Attending Provider: Rosario Tenorio Admit Provider: Edis Wise Primary Care Provider: Leighton Chen Other Providers: Edis Wise Service: Medical Other Interventions: Discharge Summary Assessment (RN) Last Done: 07/18/18 16:55 Pending Studies at Discharge: No DC Date/Time DO NOT enter until pt leaves facility: 07/18/18 17:47
== END 2018-07-18 17:47 | disposition home or self-care (01) ==
LOC: ED 22:46 → 4E 22:46 → SUATTDRO 07-18 04:54 → 4E 07-18 06:01